=== PATIENT | male | born 1975 | race Two or more races ===

== ENCOUNTER 2017-10-19 10:52 | Emergency (ER) | payer OTHER, SELFPAY ==
[~2017-10-19] VITALS: Ht 172.7 cm; Wt 91.0 kg
[2017-10-19] MEDS ORDERED: SODIUM CHLORIDE FLUSH 10ML SYR IVF ONE (11:30)
[2017-10-19] MEDS ORDERED: ASPIRIN 81 MG TABLET CHEW PO ONE (11:30)
[2017-10-19] MEDS ORDERED: SODIUM CHLORIDE 0.9% 1,000ML IVBOLUS ONE (11:30)
[2017-10-19] MEDS ORDERED: LORazepam 2 MG/ML, 1ML IVPush ONE (11:30)
[2017-10-19 11:54] LABS: BASOPHILS # (AUTO) 0.03 x10^3/uL (0-0.1); BASOPHILS % (AUTO) 0 % (0-1); EOSINOPHILS # (AUTO) 0.02 x10^3/uL (0-0.4); EOSINOPHILS % (AUTO) 0 % (1-7); LYMPHOCYTES # (AUTO) 1.78 x10^3/uL (1-3.4); LYMPHOCYTES % (AUTO) 24 % (22-44); MD NO; MEAN CORPUSCULAR HEMOGLOBIN 30.5 pg (27.5-34.5); MEAN CORPUSCULAR HGB CONC 33.8 g/dL (33.2-36.2); MEAN CORPUSCULAR VOLUME 90.4 fL (81-97); MEAN PLATELET VOLUME 7.6 fL (7.4-10.4); MONOCYTES # (AUTO) 0.35 x10^3/uL (0.2-0.8); MONOCYTES % (AUTO) 5 % (2-9); NEUTROPHILS # (AUTO) 5.23 x10^3/uL (1.8-6.8); NEUTROPHILS % (AUTO) 71 % (42-75); PLATELET COUNT 313 x10^3/uL (130-400); RED BLOOD COUNT 5.77 x10^6/uL (4.38-5.82); RED CELL DISTRIBUTION WIDTH 12.5 % (9.4-14.8)
[2017-10-19 11:56] LABS: ALBUMIN 4.3 g/dL (3.4-5.0); ANION GAP 10 mmol/L (5-15); CHLORIDE 101 mmol/L (98-107); CREATININE 0.82 mg/dL (0.7-1.3)
[2017-10-19] MEDS ORDERED: ASPIRIN 81 MG TABLET CHEW ONE (11:56)
[2017-10-19] MEDS ORDERED: LORazepam 2 MG/ML, 1ML ONE (11:57)
[2017-10-19 12:00] LABS: TROPONIN I < 0.015 ng/mL (0.000-0.045)
[2017-10-19] MEDS ORDERED: METOPROLOL TARTRATE 25 MG TABLET ONE (13:10)
[2017-10-19] MEDS ORDERED: METOPROLOL SUCCINATE 50 MG TAB.ER.24H PO STA (13:11)
[2017-10-19 14:29] VITALS: BP 164/96
== END 2017-10-19 14:32 | disposition home or self-care (01) ==
LOC: ED 13:26
DX: R07.2 Precordial pain (principal); R06.00 Dyspnea, unspecified; R00.2 Palpitations; I10 Essential (primary) hypertension; E11.65 Type 2 diabetes mellitus with hyperglycemia
CPT/HCPCS: 36415; 71045; 80048; 82040; 82962; 84484; 85025; 85379; 93005; 96374; 99285; J2060; J7030

== ENCOUNTER 2019-08-22 16:17 | Emergency (ER) | payer SELFPAY ==
[~2019-08-22] VITALS: Ht 172.7 cm; Wt 80.0 kg
[2019-08-22 16:37] VITALS: BP 132/103
--- NOTE | 2019-08-22 16:39 | NUR ---
PT STATES "CHILO BEEN DRINKING FOR DAYS AND I WANT TO STOP". PT TO BP, CONT PULSE OX. ERMD IN TO EVAL PT. AWAITING ORDERS
[2019-08-22] MEDS ORDERED: THIAMINE 100MG TABLET PO ONE (17:00)
[2019-08-22 17:04] LABS: BASOPHILS # (AUTO) 0.03 x10^3/uL (0-0.1); BASOPHILS % (AUTO) 1 % (0-1); EOSINOPHILS # (AUTO) 0.02 x10^3/uL (0-0.4); EOSINOPHILS % (AUTO) 0 % (1-7); LYMPHOCYTES # (AUTO) 1.82 x10^3/uL (1-3.4); LYMPHOCYTES % (AUTO) 31 % (22-44); MD NO; MEAN CORPUSCULAR HEMOGLOBIN 31.6 pg (27.5-34.5); MEAN CORPUSCULAR HGB CONC 34.1 g/dL (33.2-36.2); MEAN CORPUSCULAR VOLUME 92.5 fL (81-97); MONOCYTES # (AUTO) 0.41 x10^3/uL (0.2-0.8); MONOCYTES % (AUTO) 7 % (2-9); NEUTROPHILS # (AUTO) 3.58 x10^3/uL (1.8-6.8); NEUTROPHILS % (AUTO) 61 % (42-75); PLATELET COUNT 250 x10^3/uL (130-400); RED BLOOD COUNT 5.51 x10^6/uL (4.38-5.82); RED CELL DISTRIBUTION WIDTH 13.7 % (9.4-14.8)
[2019-08-22 17:05] LABS: ALANINE AMINOTRANSFERASE 60 U/L (12-78); ALBUMIN 4.2 g/dL (3.4-5.0); ANION GAP 12 mmol/L (5-15); CALCIUM 8.7 mg/dL (8.5-10.1); CHLORIDE 105 mmol/L (98-107); CREATININE 0.82 mg/dL (0.7-1.3)
[2019-08-22 17:09] LABS: ALKALINE PHOSPHATASE 63 U/L (45-117); BILIRUBIN,TOTAL 0.5 mg/dL (0.2-1.0); TOTAL PROTEIN 8.6 g/dL (6.4-8.2)
--- NOTE | 2019-08-22 17:23 | NUR ---
PT NOT FOUND IN RM, NOT FOUND IN BR. NO BELONGINGS IN PT RM. 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 [facility] CALLED TO INFORM OF SITUATION, PT WITH MANJINDER [phone], PT DID DRIVE HERE AND POLICE WERE CALLED BY MILLWORK ESTIMATOR. PT WAS ASKED BY [employer] PREVIOUSLY WHEN OFFICERS ARRIVED, PT DENIED DRIVING AT THAT TIME, ALTHOUGH OFFICERS DID FIND PTS VEHICLE IN THE PARKING LOT. MD UPDATED AND CHARGE UPDATED
== END 2019-08-22 17:38 | disposition left against medical advice (07) ==
LOC: ED 17:32
DX: F10.120 Alcohol abuse with intoxication, uncomplicated (principal); R11.2 Nausea with vomiting, unspecified; E11.9 Type 2 diabetes mellitus without complications; Z72.89 Other problems related to lifestyle; Y90.9 Presence of alcohol in blood, level not specified
CPT/HCPCS: 36415; 80053; 80307; 85025; 99283